=== PATIENT | female | born 1970 ===

== ENCOUNTER 2017-08-05 10:45 | Outpatient (CLI) | payer OTHER ==
[~2017-08-05] VITALS: Ht 172.7 cm; Wt 79.4 kg
== END 2017-08-05 11:00 | disposition home or self-care (01) ==
LOC: OFIC 805 10:45
DX: H61.23 Impacted cerumen, bilateral (principal); H90.3 Sensorineural hearing loss, bilateral

== ENCOUNTER 2017-08-22 14:03 | Outpatient (CLI) | payer OTHER ==
[~2017-08-22] VITALS: Ht 152.4 cm; Wt 79.4 kg
== END 2017-08-22 14:20 | disposition home or self-care (01) ==
LOC: OFIC 805 14:03
DX: H61.23 Impacted cerumen, bilateral (principal); H90.3 Sensorineural hearing loss, bilateral

== ENCOUNTER 2017-08-30 09:04 | Outpatient (CLI) | payer OTHER ==
[~2017-08-30] VITALS: Ht 152.4 cm; Wt 79.4 kg
== END 2017-08-30 09:25 | disposition home or self-care (01) ==
LOC: OFIC 805 09:04
DX: H90.3 Sensorineural hearing loss, bilateral (principal); H92.03 Otalgia, bilateral

== ENCOUNTER 2017-09-16 09:50 | Outpatient (CLI) | payer OTHER | END 2017-09-16 10:10 | disposition home or self-care (01) | LOC: OFIC 805 09:50 | DX: H90.41 Sensorineural hearing loss, unilateral, right ear, with unrestricted hearing on the contralateral side (principal); H74.8X1 Other specified disorders of right middle ear and mastoid ==

== ENCOUNTER 2017-09-30 06:05 | Day surgery (SDC) | payer OTHER ==
[~2017-09-30 06:05] MED LIST: IRON18 MG PO; M.V.I. ADULT10 ML PO
== END 2017-09-30 12:55 | disposition home or self-care (01) ==
LOC: CIR.AMB 06:05
DX: H65.191 Other acute nonsuppurative otitis media, right ear (principal); H69.90 Unspecified Eustachian tube disorder, unspecified ear

== ENCOUNTER 2017-11-19 12:12 | Outpatient (CLI) | payer OTHER ==
[~2017-11-19] VITALS: Ht 152.4 cm; Wt 79.4 kg
== END 2017-11-19 12:25 | disposition home or self-care (01) ==
LOC: OFIC 805 12:12
DX: H74.8X3 Other specified disorders of middle ear and mastoid, bilateral (principal); H66.91 Otitis media, unspecified, right ear; H61.21 Impacted cerumen, right ear

== ENCOUNTER 2018-07-04 09:33 | Outpatient (CLI) | payer OTHER ==
[~2018-07-04] VITALS: Ht 152.4 cm; Wt 68.0 kg
== END 2018-07-04 09:45 | disposition home or self-care (01) ==
LOC: OFIC 805 09:33
DX: H74.8X3 Other specified disorders of middle ear and mastoid, bilateral (principal); H66.93 Otitis media, unspecified, bilateral; H61.23 Impacted cerumen, bilateral

== ENCOUNTER 2020-06-01 12:06 | Outpatient (CLI) | payer OTHER | END 2020-06-01 13:32 | disposition home or self-care (01) | LOC: OFIC 805 12:06 | PROVIDERS: ATTEND Otolaryngology Otology & Neurotology | DX: H74.41 Polyp of right middle ear (principal); H74.8X1 Other specified disorders of right middle ear and mastoid ==

== ENCOUNTER → 2020-06-22 | Outpatient (CLI) | payer OTHER | END | disposition home or self-care (01) | LOC: OFIC 805 14:24 | PROVIDERS: ATTEND Otolaryngology Otology & Neurotology | DX: T85.898A Other specified complication of other internal prosthetic devices, implants and grafts, initial encounter (principal); H61.21 Impacted cerumen, right ear; H66.91 Otitis media, unspecified, right ear; H74.8X1 Other specified disorders of right middle ear and mastoid ==